=== PATIENT | female | born 1985 | race Caucasian/White ===

== ENCOUNTER → 2016-09-28 | Outpatient (REF) ==
[~2016-09-28] MED LIST: MOTRIN 600600 MG/TAB PO; PHENERGAN12.5 MG/SU RC; PRENATAL VITAMI1 TA5 PO; SLOW FE160 MG
== END ==
LOC: WSOH 11:30
DX: Z02.89 Encounter for other administrative examinations (principal)

== ENCOUNTER → 2016-11-19 | Outpatient (REF) | LOC: WSOH 16:00 | DX: Z02.89 Encounter for other administrative examinations (principal) ==

== ENCOUNTER 2021-05-08 11:23 | Outpatient (RCR) | payer OTHER | END 2021-05-11 | disposition home or self-care (01) | LOC: WSOH | DX: Z20.5 Contact with and (suspected) exposure to viral hepatitis (principal); W46.1XXA Contact with contaminated hypodermic needle, initial encounter; Y99.0 Civilian activity done for income or pay ==